=== PATIENT | female | born 1940 | race African-American/Black ===

== ENCOUNTER 2018-04-24 05:55 | Inpatient (IN) | payer OTHER ==
[2018-04-24] MEDS ORDERED: MIDAZOLAM 1 MG/ML 2 ML INJ (07:44)
[2018-04-24] MEDS ORDERED: ROCURONIUM 50 MG INJ (07:44)
[2018-04-24] MEDS ORDERED: ETOMIDATE 20 MG INJ (07:44)
[2018-04-24] MEDS ORDERED: LIDOCAINE 1% (MDV) 20 ML INJ (07:45)
[2018-04-24] MEDS ORDERED: morphine SULFATE/PF (10 MG/10 ML) INJ (07:47)
[2018-04-24] MEDS ORDERED: HYDROCODONE/APAP (5/325) TAB PO (08:00)
[2018-04-24] MEDS ORDERED: PHENYLephrine (100 MCG/ML) 5ML SYG ×2 (08:19→10:21)
[2018-04-24] MEDS ORDERED: CEFAZOLIN 1 GM INJ (08:25)
[2018-04-24] MEDS ORDERED: DEXAMETHASONE 4 MG/ML 5 ML INJ (08:35)
[2018-04-24] MEDS ORDERED: ONDANSETRON 4 MG INJ (08:35)
[2018-04-24] MEDS ORDERED: FAMOTIDINE 20 MG INJ (08:35)
[2018-04-24] MEDS ORDERED: EPHEDrine SULFATE 50 MG/5 ML SYG (10:21)
[2018-04-24] MEDS ORDERED: EPINEPHrine 100 MCG/10 ML SYG IV (10:21)
[2018-04-24] MEDS ORDERED: ATROPINE 1 MG/10 ML SYRINGE (10:21)
[2018-04-24] MEDS ORDERED: DIPHENHYDRAMINE 50 MG INJ IV (11:00)
[2018-04-24] MEDS ORDERED: KETOROLAC 30 MG INJ IV (11:00)
[2018-04-24] MEDS ORDERED: NALOXONE (0.4 MG/ML) INJ IV (11:00)
[2018-04-24] MEDS ORDERED: ONDANSETRON 4 MG INJ IV (11:00)
[2018-04-24] MEDS ORDERED: HYDROmorphONE 0.5 MG/0.5 ML SYG IV ×2 (11:00)
[2018-04-24 11:04] LABS: ADD UMIC YES; UR ASCORBIC ACID NEGATIVE (NEGATIVE); UR BILIRUBIN (Dip) NEGATIVE (NEGATIVE); UR BLOOD (Dip) 2+ mg/dL (NEGATIVE); UR CLARITY CLEAR (CLEAR); UR COLOR YELLOW (YELLOW); UR GLUCOSE (Dip) NEGATIVE (NEGATIVE); UR KETONES (Dip) NEGATIVE (NEGATIVE); UR LEUKOCYTE ESTERASE (Dip) NEGATIVE Leu/ul (NEGATIVE); UR MUCUS FEW /HPF (NONE SEEN); UR NITRITE (Dip) NEGATIVE (NEGATIVE); UR RBC 66 /HPF (0-5); UR SQUAMOUS EPITHELIAL CELL FEW /HPF (FEW); UR TOTAL PROTEIN (Dip) NEGATIVE (NEGATIVE); UR UROBILINOGEN (Dip) NEGATIVE (NEGATIVE); UR WBC 2 /HPF (0-5)
[2018-04-24] MEDS: hydrALAzine 20 MG INJ IV ×2 (11:19→11:25)
[2018-04-24] MEDS ORDERED: LABETALOL HCL 20MG INJ IV (11:30)
[2018-04-24] MEDS: LACTATED RINGER'S 1,000 ML IV ×2 (11:39→14:01)
[2018-04-24] MEDS: HYDROCHLOROTHIAZIDE 25 MG TAB PO (12:17)
[2018-04-24] MEDS: DORZOLAMIDE 2% 10 ML OPH BOTH EYES ×2 (12:19→20:32)
[2018-04-24] MEDS: DICLOFENAC 0.1% 2.5 ML OPH BOTH EYES ×3 (13:00→20:33)
[2018-04-24] MEDS: METOCLOPRAMIDE 10 MG TAB PO ×3 (14:00→23:56)
[2018-04-24] MEDS: CEFAZOLIN 1 GM/50 ML (PMX) 50 ML IVPB ×2 (15:26→23:56)
[2018-04-24] MEDS: LATANOPROST 0.005% 2.5 ML OPH BOTH EYES (20:33)
[2018-04-24] MEDS ORDERED: ZOLPIDEM 5 MG TAB PO (21:00)
[2018-04-25] MEDS: LACTATED RINGER'S 1,000 ML IV ×4 (00:12→23:58)
[2018-04-25 05:24] LABS: ADD MAN DIFF? NO
[2018-04-25 05:31] LABS: BASOPHILS % 0.1 % (0.0-2.0); EOSINOPHILS % 0.1 % (0.0-7.0); HEMATOCRIT 35.7 % (37.0-47.0); HEMOGLOBIN 11.2 g/dl (12.0-16.0); LYMPHOCYTES # 0.7 10^3/ul (0.8-2.9); LYMPHOCYTES % 8.2 % (15.0-51.0); MEAN CORPUSCULAR HGB CONC 31.4 g/dl (32.0-37.0); MEAN CORPUSCULAR VOLUME 76.4 fl (82.0-101.0); MEAN PLATELET VOLUME 10.5 fl (7.4-10.4); MONOCYTE # 0.7 10^3/ul (0.3-0.9); NEUTROPHIL # 6.7 10^3/ul (1.6-7.5); NEUTROPHILS % 83.1 % (39.0-77.0); PLATELET COUNT 141 10^3/UL (140-415); RED BLOOD COUNT 4.67 10^6/ul (4.20-5.40); RED CELL DISTRIBUTION WIDTH 14.6 % (11.5-14.5)
[2018-04-25 05:31] LABS: WHITE BLOOD COUNT 8.1 10^3/ul (4.8-10.8)
[2018-04-25 06:01] LABS: ANION GAP 8 (5-13); BLOOD UREA NITROGEN 17 mg/dl (7-20); CARBON DIOXIDE 32 mmol/L (21-31); CHLORIDE 98 mmol/L (97-110); CREATININE 0.62 mg/dl (0.44-1.00); POTASSIUM 3.7 mmol/L (3.5-5.1); SODIUM 138 mmol/L (135-144)
[2018-04-25] MEDS: METOCLOPRAMIDE 10 MG TAB PO ×4 (06:40→23:50)
[2018-04-25] MEDS: CEFAZOLIN 1 GM/50 ML (PMX) 50 ML IVPB (08:50)
[2018-04-25] MEDS: DORZOLAMIDE 2% 10 ML OPH BOTH EYES ×2 (08:51→21:07)
[2018-04-25] MEDS: DICLOFENAC 0.1% 2.5 ML OPH BOTH EYES ×4 (08:51→21:07)
[2018-04-25] MEDS: HYDROCHLOROTHIAZIDE 25 MG TAB PO (08:52)
[2018-04-25] MEDS: HYDROCODONE/APAP (5/325) TAB PO (10:44)
[2018-04-25] MEDS: KETOROLAC 15 MG INJ IV ×3 (10:46→23:00)
[2018-04-25] MEDS: BISACODYL (EC) 5 MG TAB PO (10:56)
[2018-04-25] MEDS ORDERED: ONDANSETRON INJ 6 MG in DEXTROSE 5% 50 ML IVPB (10:59)
[2018-04-25] MEDS ORDERED: DIPHENHYDRAMINE 50 MG CAP PO (10:59)
[2018-04-25] MEDS ORDERED: ZOLPIDEM 5 MG TAB PO (21:00)
[2018-04-25] MEDS: LATANOPROST 0.005% 2.5 ML OPH BOTH EYES (21:07)
[2018-04-25] MEDS: ALBUTEROL/IPRATROPIUM (NEB) 3 ML AMP HHN (23:03)
[2018-04-26] MEDS ORDERED: ALBUTEROL/IPRATROPIUM (NEB) 3 ML AMP HHN
[2018-04-26] MEDS: KETOROLAC 15 MG INJ IV ×3 (05:00→18:55)
[2018-04-26 05:25] LABS: ADD MAN DIFF? NO
[2018-04-26 05:30] LABS: BASOPHILS % 0.1 % (0.0-2.0); EOSINOPHILS # 0.1 10^3/ul (0.0-0.5); EOSINOPHILS % 0.9 % (0.0-7.0); HEMATOCRIT 30.8 % (37.0-47.0); HEMOGLOBIN 9.7 g/dl (12.0-16.0); LYMPHOCYTES # 1.9 10^3/ul (0.8-2.9); LYMPHOCYTES % 24.9 % (15.0-51.0); MEAN CORPUSCULAR HEMOGLOBIN 24.1 pg (29.0-33.0); MEAN CORPUSCULAR HGB CONC 31.5 g/dl (32.0-37.0); MEAN CORPUSCULAR VOLUME 76.6 fl (82.0-101.0); MEAN PLATELET VOLUME 10.3 fl (7.4-10.4); MONOCYTE # 0.6 10^3/ul (0.3-0.9); MONOCYTES % 8.5 % (0.0-11.0); NEUTROPHIL # 4.9 10^3/ul (1.6-7.5); NEUTROPHILS % 65.3 % (39.0-77.0); PLATELET COUNT 117 10^3/UL (140-415); RED BLOOD COUNT 4.02 10^6/ul (4.20-5.40); RED CELL DISTRIBUTION WIDTH 14.6 % (11.5-14.5)
[2018-04-26 05:30] LABS: WHITE BLOOD COUNT 7.5 10^3/ul (4.8-10.8)
[2018-04-26] MEDS: METOCLOPRAMIDE 10 MG TAB PO ×3 (06:00→18:55)
[2018-04-26] MEDS: LACTATED RINGER'S 1,000 ML IV ×3 (07:58→23:58)
[2018-04-26] MEDS: HYDROCHLOROTHIAZIDE 25 MG TAB PO (10:39)
[2018-04-26] MEDS: DORZOLAMIDE 2% 10 ML OPH BOTH EYES ×2 (10:40→22:02)
[2018-04-26] MEDS: DICLOFENAC 0.1% 2.5 ML OPH BOTH EYES ×4 (10:40→22:02)
[2018-04-26] MEDS ORDERED: IBUPROFEN 400 MG TAB PO (18:00)
[2018-04-26] MEDS: PANTOPRAZOLE (EC) 40 MG TAB PO (18:55)
[2018-04-26] MEDS: HYDROCODONE/APAP (5/325) TAB PO (22:01)
[2018-04-26] MEDS: LATANOPROST 0.005% 2.5 ML OPH BOTH EYES (22:02)
[2018-04-26] MEDS: ENOXAPARIN 30 MG/0.3 ML SYG SC (22:05)
[2018-04-27] MEDS: IBUPROFEN 400 MG TAB PO ×3 (00:09→13:17)
[2018-04-27] MEDS: METOCLOPRAMIDE 10 MG TAB PO ×3 (00:10→13:17)
[2018-04-27 05:29] LABS: ADD MAN DIFF? NO
[2018-04-27 05:30] LABS: WHITE BLOOD COUNT 5.7 10^3/ul (4.8-10.8)
[2018-04-27 05:30] LABS: BASOPHILS % 0.2 % (0.0-2.0); EOSINOPHILS # 0.1 10^3/ul (0.0-0.5); EOSINOPHILS % 2.1 % (0.0-7.0); HEMATOCRIT 30.6 % (37.0-47.0); HEMOGLOBIN 9.6 g/dl (12.0-16.0); LYMPHOCYTES # 1.9 10^3/ul (0.8-2.9); LYMPHOCYTES % 33.3 % (15.0-51.0); MEAN CORPUSCULAR HEMOGLOBIN 24.3 pg (29.0-33.0); MEAN CORPUSCULAR HGB CONC 31.4 g/dl (32.0-37.0); MEAN CORPUSCULAR VOLUME 77.5 fl (82.0-101.0); MEAN PLATELET VOLUME 10.3 fl (7.4-10.4); MONOCYTE # 0.8 10^3/ul (0.3-0.9); MONOCYTES % 13.2 % (0.0-11.0); NEUTROPHIL # 2.9 10^3/ul (1.6-7.5); PLATELET COUNT 116 10^3/UL (140-415); RED BLOOD COUNT 3.95 10^6/ul (4.20-5.40); RED CELL DISTRIBUTION WIDTH 14.8 % (11.5-14.5)
[2018-04-27] MEDS: PANTOPRAZOLE (EC) 40 MG TAB PO (06:22)
[2018-04-27] MEDS: LACTATED RINGER'S 1,000 ML IV (07:58)
[2018-04-27] MEDS: DORZOLAMIDE 2% 10 ML OPH BOTH EYES (09:14)
[2018-04-27] MEDS: DICLOFENAC 0.1% 2.5 ML OPH BOTH EYES ×2 (09:14→13:17)
[2018-04-27] MEDS: HYDROCHLOROTHIAZIDE 25 MG TAB PO (09:14)
[2018-04-27] MEDS: ENOXAPARIN 30 MG/0.3 ML SYG SC (09:16)
[2018-04-27] MEDS: BISACODYL (EC) 5 MG TAB PO (09:54)
[2018-04-27] MEDS ORDERED: SOD FERRIC GLUC COMPLX 125 MG in SOD CHLORIDE 0.9% 100 ML IVPB (13:00)
== END 2018-04-27 15:55 | disposition home or self-care (01) | DRG 741 ==
LOC: REC 05:55 → MS1 04-25 20:27
PROC: 0UT90ZZ Resection of Uterus, Open Approach (ICD-10-PCS; principal; 2018-04-24 07:30)
PROC: 0UT20ZZ Resection of Bilateral Ovaries, Open Approach (ICD-10-PCS; 2018-04-24 07:30)
PROC: 0UT70ZZ Resection of Bilateral Fallopian Tubes, Open Approach (ICD-10-PCS; 2018-04-24 07:30)
DX: C53.9 Malignant neoplasm of cervix uteri, unspecified (principal); E66.9 Obesity, unspecified; Z68.31 Body mass index [BMI] 31.0-31.9, adult; I10 Essential (primary) hypertension
CPT/HCPCS: 71045; 80051; 81001; 82565; 82962; 84520; 85025; 86850; 86900; 86901; 87086; 88305; 93005; 93970; 94664